=== PATIENT | female | born 1975 | race American Indian/Alaskan Native ===

== ENCOUNTER 2017-08-27 09:58 | Day surgery (SDC) | payer BC ==
--- NOTE | 2017-08-26 10:15 | Anesthesia Consultation ---
Anesthesia Consult and Med Hx Date of service: 08/26/17 - Airway Anesthetic Teeth Evaluation: Good ROM Head & Neck: Adequate Mental/Hyoid Distance: Adequate Mallampati Class: Class I Intubation Access Assessment: Good - Pulmonary Exam CTA: Yes - Cardiac Exam Cardiac Exam: No Murmur - Pre-Operative Health Status ASA Pre-Surgery Classification: ASA2 Proposed Anesthetic Plan: General Nerve Block: TAP Block - Pre-Anesthesia Comment Pre-Anesthesia Comments: Patient has had anesthesia for Myomectomy, , and orthopedic procedure without any intolerance to management. She tolerates > 6 METS. 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 No chest pain or SOB. No h/o N/V. No motion sickness. - Pulmonary Hx Smoking: No Hx Asthma: No COPD: No Hx Pneumonia: No - Cardiovascular System Hx Hypertension: No - Central Nervous System Hx Seizures: No CVA: No - Gastrointestinal Hx Gastroesophageal Reflux Disease: Yes (infrequent symptoms of heart burn) - Endocrine Hx End Stage Renal Disease: No Hx Insulin Dependent Diabetes: No - Hematic Hx Anemia: Yes - Other Systems Hx Alcohol Use: Yes (2 SERVINGS WEEKLY (patient states she has tolerance))
[2017-08-26 10:35] LABS: Hematocrit 24.7 % (30.3-42.9); Hemoglobin 7.1 gm/dl (10.1-14.3); Mean Corpuscular HGB Conc 29 % (30-34); Mean Corpuscular Hemoglobin 18 pg (28-32); Mean Corpuscular Volume 63 fl (79-97); Red Blood Count 3.92 M/mm3 (3.65-5.03); Red Cell Distribution Width 19.9 % (13.2-15.2)
[2017-08-26 10:36] LABS: Platelet Count 329 K/mm3 (140-440)
[2017-08-26 11:13] VITALS: BP 136/78
[2017-08-26 11:28] LABS: Basophils % (Manual) 0 % (0.0-1.8); Eosinophils % (Manual) 0 % (0.0-4.3); Total Cells Counted 100
[2017-08-26 11:34] LABS: Anisocytosis 2+; Hypochromasia 2+; Poikilocytosis 1+
[2017-08-26 11:35] LABS: Tear Drop Cells Few
[2017-08-26 11:36] LABS: Platelet Estimate Cons
--- NOTE | 2017-08-27 08:07 | History and Physical Report ---
History of Present Illness Date of examination: 08/27/17 Date of admission: 08/27/2017 Chief complaint: dysfunctional uterine bleeding History of present illness: 41-year-old with a history of dysfunctional uterine bleeding. The patient has a history of leiomyomas and has had a previous myomectomy but has had a recurrence of her fibroids. The patient states that her menses is prolonged and abnormal. She reports passage of clots and flooding during her menses. The patient also experiences cramping and discomfort. She has elected to undergo definitive surgical management. 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 Past History Past Medical History: other (leiomyoma; anemia) Past Surgical History: section, myomectomy Social history: single - Obstetrical History : 3 Para: 1 Hx # Term Pregnancies: 1 Number of Pregnancies: 0 Spontaneous Abortions: 0 Induced : 2 Number of Living Children: 1 Medications and Allergies Allergies Allergy/AdvReac Type Severity Reaction Status Date / Time No Known Allergies Allergy Verified 08/26/17 10:00 Home Medications Medication Instructions Recorded Confirmed Last Taken Type No Known Home Medications [No 08/26/17 08/26/17 Unknown History Reported Home Medications] Active Meds: Active Medications Cefazolin Sodium (Ancef/Sterile Water 2 Gm/20 Ml) 2 gm in 20 mls @ 80 mls/hr IV PREOP [facility]; Protocol Stop: 08/27/17 23:59 Review of Systems Constitutional: fatigue, malaise Genitourinary: vaginal bleeding, pelvic pain - Vital Signs Vital signs: Vital Signs Temp Pulse Resp BP 98.6 F 68 18 136/78 08/26/17 09:45 08/26/17 09:45 08/26/17 09:45 08/26/17 09:45 Temp Pulse Resp BP Pulse Ox 98.6 F 68 18 136/78 08/26/17 09:45 08/26/17 09:45 08/26/17 09:45 08/26/17 09:45 - Physical Exam Breasts: Positive: deferred Cardiovascular: Regular rate Lungs: Positive: Clear to auscultation Abdomen: Positive: normal appearance Results Result Diagrams: 08/26/17 09:45 Abnormal lab results 08/26/17 Range/Units 09:45 Hgb 7.1 L (10.1-14.3) gm/dl Hct 24.7 L (30.3-42.9) % MCV 63 L (79-97) fl MCH 18 L (28-32) pg MCHC 29 L (30-34) % RDW 19.9 H (13.2-15.2) % Seg Neuts % (Manual) 79.0 H (40.0-70.0) % All other labs normal. Assessment and Plan - Patient Problems (1) Anemia Status: Chronic Plan to address problem: Admit for robotic hysterectomy Today patient will be transfused packed red blood cells prior to surgery (2) Menometrorrhagia Status: Chronic (3) Uterine fibroid Status: Chronic Plan to address problem: scheduled for a robotic hysterectomy and transfusion
[~2017-08-27 09:58] MED LIST: ANCEF/STERILE WATER 2 GM/20 ML 2 GM/20 ML SYRINGE IV SCH; NACL 0.9% 500 ML 500 ML IV ONE
== END 2017-08-27 09:59 | disposition home or self-care (01) ==
LOC: OR 09:58
PROVIDERS: ATTEND Obstetrics & Gynecology
DX: N93.8 Other specified abnormal uterine and vaginal bleeding (principal); K21.9 Gastro-esophageal reflux disease without esophagitis; Z98.890 Other specified postprocedural states; Z53.8 Procedure and treatment not carried out for other reasons
CPT/HCPCS: 36415; 84703; 85007; 85025

== ENCOUNTER 2017-09-03 09:58 | Observation (INO) | payer BC ==
[~2017-09-03 09:58] MED LIST changes: +ANCEF/STERILE WATER 2 GM/20 ML 2 GM/20 ML SYRINGE IV NR; -ANCEF/STERILE WATER 2 GM/20 ML 2 GM/20 ML SYRINGE IV SCH; +NACL 0.9% 500 ML 500 ML IV NR; -NACL 0.9% 500 ML 500 ML IV ONE
[2017-09-03] MEDS ORDERED: NACL 0.9% 1000 ML 1,000 ML ONE (10:30)
[2017-09-03] MEDS ORDERED: NACL 0.9% 1000 ML 1,000 ML IV SCH (13:00)
[2017-09-03] MEDS ORDERED: VERSED ONE (14:07)
[2017-09-03] MEDS ORDERED: SUBLIMAZE ONE ×3 (14:07→16:52)
[2017-09-03] MEDS ORDERED: DIPRIVAN 10 MG/ML IV ONE (14:46)
[2017-09-03] MEDS ORDERED: QUELICIN ONE (15:02)
[2017-09-03] MEDS ORDERED: TORADOL ONE (15:02)
[2017-09-03] MEDS ORDERED: NEOSTIGMINE ONE (15:02)
[2017-09-03] MEDS ORDERED: ZOFRAN ONE (15:02)
[2017-09-03] MEDS ORDERED: ROBINUL ONE (15:02)
[2017-09-03] MEDS ORDERED: XYLOCAINE MPF 2% ONE (15:02)
[2017-09-03] MEDS ORDERED: ZEMURON IV ONE ×2 (15:02)
[2017-09-03] MEDS ORDERED: THROMBIN (BOVINE) TP ONE ×2 (15:06→16:12)
[2017-09-03] MEDS ORDERED: GELFOAM POWDER 1GM MM ONE ×2 (15:06→16:12)
[2017-09-03] MEDS ORDERED: NEOSPORIN GU IR ONE ×2 (15:07→16:12)
[2017-09-03] MEDS ORDERED: NARCAN 0.4 MG/1 ML IV PRN (15:17)
[2017-09-03] MEDS ORDERED: TYLENOL PO PRN (15:18)
[2017-09-03] MEDS ORDERED: ZOFRAN IV PRN (15:18)
[2017-09-03] MEDS ORDERED: AMBIEN PO PRN (15:18)
[2017-09-03] MEDS ORDERED: MILK OF MAGNESIA PO PRN (15:18)
[2017-09-03] MEDS ORDERED: MOTRIN PO PRN (15:18)
[2017-09-03] MEDS ORDERED: PERCOCET 5/325 PO PRN (15:18)
[2017-09-03] MEDS ORDERED: MORPHINE PCA 30MG/30ML IV SCH (16:00)
[2017-09-03] MEDS ORDERED: NACL 0.9% IR ONE ×2 (16:12)
--- NOTE | 2017-09-03 16:36 | Operative Report ---
Operative Report Operative Report: Date of surgery: 09/03/2017 Preoperative diagnoses: Symptomatic fibroid uterus; menorrhagia; iron deficiency anemia Postoperative diagnoses: Robotic hysterectomy; right lateral salpingectomy; lysis of adhesions Procedure: Robotic hysterectomy Surgeon: Alie Ann M.D. Fleet Technician: Sweta Ibarra Anesthesia: Gen. endotracheal anesthesia Estimated blood loss: 30ml Pathology:Uterus, cervix, bilateral tubes Indication: 41-year-old with a history of significant dysfunctional uterine bleeding resulting in iron deficiency anemia. The patient has a known history of uterine fibroids. The patient was transfused 2 units of packed red blood cells prior to surgery. Procedure: The patient was taken to the operating room and given general endotracheal anesthesia without complication. She is prepped and draped in a normal sterile fashion. A bivalve speculum was placed in the patient's vagina and a single- tooth tenaculum placed on the anterior lip of the cervix. The uterus was sounded with the uterine sound. A [employer] uterine manipulator was placed in the bivalve speculum was then removed. Attention was then turned to the patient's abdomen where a millimeter supra umbilical skin incision was then made. A Veress needle was placed and peritoneal entry was verified water-filled syringe. Insufflation of the peritoneal cavity was performed with CO2 gas. The 12 mm trocar was then placed under direct visualization. An additional 8 mm trocar was placed on the patient's left and right lateral side just opposite of the supraumbilical trocar. An additional 5 mm right lateral trocar was then placed as the accessory port. The patient was then placed in steep Trendelenburg. The da Pascale robot was then engaged. A fenestrated forcep was placed in arm 2 and a vessel sealer was placed in arm 1. The surgeon then transferred to the surgical console. General survey of the patient's abdomen and pelvis revealed findings of an omental adhesion to the anterior abdominal wall. The uterus was slightly enlarged. This evidence of normal tubes and ovaries bilaterally. The mesosalpinx was then isolated on the right. The vessel sealer was used to coagulate the mesosalpinx which was then transected. The tube was transected from the ovary. The tubo-ovarian ligament was then coagulated and transected. The round ligament was then coagulated and transected also. The vesicouterine peritoneum was then entered from the patient 's right side. The uterine vessels were then coagulated with the vessel sealer. The vessels were then transected . Attention was then turned to the patient's left side where the tubo-ovarian ligament and mesosalpinx were again isolated coagulated and transected. The vesical peritoneum was then entered from the left and joined in the midline. Peritoneum was reflected off of the lower uterine segment. Uterine vessels were then coagulated and then transected. The blood supply to the uterus was adequately contained, a posterior colpotomy was made. The V care ring was visualized. Posterior colpotomy was created with the monopolar scissors. The incision was continued circumferentially until anterior colpotomy was made. The cervix and uterus were amputated from the vaginal cuff. The uterus was then removed along with the tubes bilaterally through the vagina and a warm laparotomy sponge was placed and maintain the pneumoperitoneum. The vaginal cuff was then closed in a running fashion with V lock suture. Irrigation of the pelvis was performed. Gelfoam with thrombin was applied to the incision. The supraumbilical 12 mm trocar site was closed with the Andrew Mccollum device. The skin was then reapproximated with 4-0 Monocryl. The tissue was sent to pathology which included the cervix and uterus. The patient was then successfully extubated. She was then taken to the recovery room in stable condition. All sponge laps and needle counts were correct x2.
[2017-09-03] MEDS: DILAUDID IV PRN ×2 (17:35→17:46)
[2017-09-03] MEDS: D5LR 1,000 ML IV SCH (19:18)
[2017-09-03] MEDS: TORADOL IV SCH (22:17)
[2017-09-04] MEDS ORDERED: BENADRYL IV PRN (00:17)
[2017-09-04] MEDS: D5LR 1,000 ML IV SCH (03:44)
[2017-09-04] MEDS: TORADOL IV SCH ×2 (03:48→11:14)
[2017-09-04 04:18] LABS: Hematocrit 26.2 % (30.3-42.9); Hemoglobin 7.9 gm/dl (10.1-14.3)
--- NOTE | 2017-09-04 13:47 | Progress Note ---
Assessment and Plan - Patient Problems (1) Menometrorrhagia Current Visit: No Status: Chronic Plan to address problem: patient doing well discharge home today (2) Uterine fibroid Current Visit: No Status: Chronic Subjective - Subjective Date of service: 09/04/17 Interval history: Patient tolerated a regular diet. She has ambulated in the room. Surgery discussed with patient Patient reports: appetite normal, voiding normally, pain well controlled Objective - Vital Signs Latest vital signs: Vital Signs Temp Pulse Resp BP BP Pulse Ox 09/04/17 09:52 98.1 F 63 18 107/63 100 09/04/17 04:59 97.9 F 55 L 18 104/66 09/03/17 23:14 98.3 F 58 L 20 109/71 09/03/17 18:25 98.4 F 67 16 106/53 100 09/03/17 18:20 98.4 F 67 16 106/53 100 09/03/17 18:00 97.8 F 62 16 119/76 100 09/03/17 17:46 14 09/03/17 17:45 63 16 122/65 100 09/03/17 17:35 17 09/03/17 17:30 68 14 125/71 100 09/03/17 17:15 64 17 132/72 100 09/03/17 17:00 67 18 129/70 100 09/03/17 16:55 74 18 121/70 100 09/03/17 16:50 84 22 135/75 100 09/03/17 16:45 97.5 F L 94 H 14 139/69 100 09/03/17 15:15 98 F 68 16 116/73 100 09/03/17 15:00 98.4 F 67 18 122/76 100 09/03/17 14:48 98.3 F 68 16 121/71 100 09/03/17 14:30 69 16 117/71 100 09/03/17 14:25 69 16 121/71 100 09/03/17 14:20 76 16 130/74 100 09/03/17 14:15 76 16 121/75 100 09/03/17 14:10 81 16 127/82 100 Intake and Output 09/03/17 09/04/17 09/04/17 22:59 06:59 14:59 Intake Total 1270 1100 360 Output Total 245 550 Balance 1025 550 360 Intake: IV 900 1000 D5lr 1,000 ml @ 125 mls/ 1000 hr IV DIRECT TEDDY Rx#: [id number] Oral 360 Intake, Free Water 120 100 Blood Product 250 Leukoreduced Red Blood 250 Cells Unit [id number] Output: Urine 245 550 Indwelling Catheter 550 Other: Total, Intake Amount 360 Total, Output Amount 550 Voiding Method Indwelling Catheter Weight 105.68 kg - Exam Incision: Present: normal - Labs Labs: Abnormal lab results 09/03/17 09/04/17 Range/Units 10:50 03:27 Hgb 7.9 L (10.1-14.3) gm/dl Hct 26.2 L (30.3-42.9) % Crossmatch See Detail
--- NOTE | 2017-09-04 13:51 | Discharge Summary ---
Providers - Providers Date of Admission: 09/03/17 15:18 Date of discharge: 09/04/17 Attending physician: SHAMAR MORRISON Primary care physician: HENNA STEEN Hospitalization Reason for admission: other (symptomatic fibroids and anemia) Procedure: other (robotic hysterectomy ) Discharge diagnosis: other (Uterine fibroids and DUB) Hospital course: The patient received 2 units prbcs prior to surgery. She underwent a robotic hysterectomy. See operative note. Postoperative course uneventful. Condition at discharge: Good Disposition: DC-01 TO HOME OR SELFCARE - Discharge Diagnoses (1) Menometrorrhagia Status: Chronic (2) Uterine fibroid Status: Chronic Plan - Discharge Medications Prescriptions: Docusate Sodium [Colace] 100 mg PO BID PRN #60 capsule PRN Reason: Constipation Ferrous Sulfate [Feosol 325 MG tab] 325 mg PO BID #60 tablet Ibuprofen [Motrin] 800 mg PO Q8HR PRN #60 tablet PRN Reason: Pain Oxycodone HCl/Acetaminophen [Percocet 7.5/325 mg] 1 each PO Q6HR PRN #45 tablet PRN Reason: Pain - Provider Discharge Summary Activity: no sex for 6 weeks, no heavy lifting 4 weeks, no strenuous exercise Diet: routine Instructions: routine Additional instructions: [] Smoking cessation referral if applicable(refer to patient education folder for contact #) [] Refer to [facility]'s [facility] Booklet Call your doctor immediately for: * Fever > 100.5 * Heavy vaginal bleeding ( >1 pad per hour) * Severe persistent headache * Shortness of breath * Reddened, hot, painful area to leg or breast * Drainage or odor from incision. * Keep incision clean and dry at all times and follow doctor's instructions regarding bathing/showering followup with Dr. Pitts in 4 weeks - Follow up plan
[2017-09-04 17:19] VITALS: BP 110/62
== END 2017-09-04 18:35 | disposition home or self-care (01) ==
LOC: OR 09:58 → OB 15:18
PROVIDERS: ADMIT Obstetrics & Gynecology; ATTEND Obstetrics & Gynecology
DX: D25.9 Leiomyoma of uterus, unspecified (principal); N92.1 Excessive and frequent menstruation with irregular cycle; D50.0 Iron deficiency anemia secondary to blood loss (chronic)
CPT/HCPCS: 36415; 36430; 58552; 64450; 81025; 85014; 85018; 86850; 86900; 86901; 86920; 88307; 96374; 96375; 96376; A4217; A4649; G0378; J0330; J0690; J1170; J1200; J1885; J2250; J2270; J2405; J2704; J2710; J3010; J7030; J7121; P9016; S2900

== ENCOUNTER 2020-05-04 09:26 | Outpatient (CLI) | payer BC ==
--- NOTE | 2020-05-04 10:27 | XRay Report ---
RIGHT SHOULDER 3 VIEW(S) INDICATION / CLINICAL INFORMATION: DISORDER OF RIGHT ROTATOR CUFF COMPARISON: None available. FINDINGS: BONES / JOINT(S): No acute fracture or subluxation. No significant arthritis. SOFT TISSUES: No significant abnormality. ADDITIONAL FINDINGS: None. IMPRESSION: No acute osseous findings in the right shoulder. Signer Name: Morgan Anderson MD Signed: 05/04/2020 10:23 AM Workstation Name: [id number]
--- NOTE | 2020-05-04 10:27 | XRay Report ---
XR spine lumbosacral 4+V INDICATION / CLINICAL INFORMATION: LUMBAR SPRAIN, INITIAL ENCOUNTER. COMPARISON: None available. FINDINGS: BONES/JOINT(S): Minimal left convex curvature of the lumbar spine. No acute fracture. No significant malalignment. PARASPINAL SOFT TISSUES:No significant abnormality. ADDITIONAL FINDINGS: None. IMPRESSION: No acute findings of the lumbar spine. Signer Name: Morgan Anderson MD Signed: 05/04/2020 10:22 AM Workstation Name: [id number]
== END 2020-05-04 09:27 | disposition home or self-care (01) ==
LOC: SPVIMAG 09:26
PROVIDERS: ATTEND Internal Medicine
DX: S33.5XXA Sprain of ligaments of lumbar spine, initial encounter (principal); M67.911 Unspecified disorder of synovium and tendon, right shoulder; M47.816 Spondylosis without myelopathy or radiculopathy, lumbar region; X58.XXXA Exposure to other specified factors, initial encounter; Y93.89 Activity, other specified; Y92.89 Other specified places as the place of occurrence of the external cause; Y99.8 Other external cause status
CPT/HCPCS: 72110